=== PATIENT | male | born 1955 | race Caucasian/White ===

== ENCOUNTER 2016-12-02 06:17 | Day surgery (SDC) | payer OTHER ==
[2016-12-01 12:14] VITALS: BMI 21.8
[2016-12-02] VITALS (19 sets, daily range): BP systolic 96–119; BP diastolic 55–77; PULSE 57–103; RESP 10–20; Ht 170.2 cm; Wt 65.4 kg
[~2016-12-02] VITALS: Ht 170.2 cm; Wt 65.4 kg
[~2016-12-02 06:17] MED LIST: CEFAZOLIN 1 GM/50 ML (PMX) 50 ML IVPB ONE
[2016-12-02] MEDS ORDERED: GLYCOPYRROLATE 0.4 MG INJ ONE ×2 (06:47→07:49)
[2016-12-02] MEDS ORDERED: LIDOCAINE 2% (SDV) 5 ML INJ ONE (06:47)
[2016-12-02] MEDS ORDERED: MIDAZOLAM 1 MG/ML 2 ML INJ ONE (06:47)
[2016-12-02] MEDS ORDERED: NEOSTIGMINE 3 MG/3 ML SYRINGE ONE (06:47)
[2016-12-02] MEDS ORDERED: PROPOFOL 20 ML ONE (06:47)
[2016-12-02] MEDS ORDERED: ROCURONIUM 50 MG INJ ONE (06:47)
[2016-12-02] MEDS ORDERED: DEXAMETHASONE 4 MG/ML 1 ML INJ ONE (06:47)
[2016-12-02] MEDS ORDERED: FENTAnyl 50 MCG/ML VIAL ONE (06:47)
[2016-12-02] MEDS ORDERED: SUGAMMADEX SODIUM 200 MG/2 ML VIAL IV ONE (06:48)
[2016-12-02] MEDS ORDERED: ONDANSETRON 4 MG INJ ONE (06:48)
[2016-12-02] MEDS ORDERED: CEFAZOLIN 1 GM INJ ONE (06:58)
[2016-12-02] MEDS ORDERED: ONDANSETRON 4 MG INJ IV PRN ×2 (07:00→16:30)
[2016-12-02] MEDS ORDERED: EPHEDrine SULFATE 50 MG/5 ML SYG IV PRN (07:00)
[2016-12-02] MEDS ORDERED: hydrALAzine 20 MG INJ IV PRN (07:00)
[2016-12-02] MEDS ORDERED: DIPHENHYDRAMINE 50 MG INJ IV PRN (07:00)
[2016-12-02] MEDS ORDERED: OXYCODONE/ACETAMINOPHEN (5/325) TAB PO PRN ×2 (07:00)
[2016-12-02] MEDS ORDERED: MIDAZOLAM 1 MG/ML 2 ML INJ IV PRN (07:00)
[2016-12-02] MEDS ORDERED: MEPERIDINE 25 MG INJ IV PRN (07:00)
[2016-12-02] MEDS ORDERED: LABETALOL HCL 20MG INJ IV PRN (07:00)
[2016-12-02] MEDS ORDERED: hydrALAzine 20 MG INJ ONE (07:00)
[2016-12-02] MEDS ORDERED: FENTAnyl 50 MCG/ML VIAL IV PRN ×2 (07:00)
[2016-12-02] MEDS ORDERED: morphine (1 MG/ML) 10ML SYRINGE IV PRN ×3 (07:00)
[2016-12-02] MEDS ORDERED: HYDROmorphONE (0.2 MG/ML) 10ML SYG IV PRN ×3 (07:00)
[2016-12-02] MEDS ORDERED: ATROPINE 1 MG/10 ML SYRINGE IV PRN (07:00)
[2016-12-02 07:10] LABS: BASOPHILS % 0.5 % (0.0-2.0); EOSINOPHILS # 0.1 10^3/ul (0.0-0.5); EOSINOPHILS % 0.9 % (0.0-7.0); HEMATOCRIT 46.3 % (42.0-52.0); HEMOGLOBIN 15.9 g/dl (14.0-18.0); LYMPHOCYTES # 1.9 10^3/ul (0.8-2.9); MEAN CORPUSCULAR HEMOGLOBIN 30.3 pg (29.0-33.0); MEAN CORPUSCULAR HGB CONC 34.3 g/dl (32.0-37.0); MEAN CORPUSCULAR VOLUME 88.4 fl (82.0-101.0); MEAN PLATELET VOLUME 10.7 fl (7.4-10.4); MONOCYTE # 0.4 10^3/ul (0.3-0.9); MONOCYTES % 7.6 % (0.0-11.0); NEUTROPHILS % 56.6 % (39.0-77.0); PLATELET COUNT 161 10^3/UL (140-415); RED BLOOD COUNT 5.24 10^6/ul (4.70-6.10); RED CELL DISTRIBUTION WIDTH 13.6 % (11.5-14.5); WHITE BLOOD COUNT 5.7 10^3/ul (4.8-10.8)
[2016-12-02] MEDS ORDERED: TAMS-14 PO (07:23)
[2016-12-02] MEDS ORDERED: DUTA0.5C PO (07:23)
[2016-12-02 07:30] LABS: INR 1.06; PROTIME 13.8 Sec (12.2-14.2); PT RATIO 1.1
[2016-12-02 07:31] LABS: PARTIAL THROMBOPLASTIN TIME 29.6 Sec (25.0-35.0)
[2016-12-02 07:32] LABS: ADD UMIC NO; UR ASCORBIC ACID NEGATIVE (NEGATIVE); UR BILIRUBIN (Dip) NEGATIVE (NEGATIVE); UR BLOOD (Dip) NEGATIVE (NEGATIVE); UR CLARITY CLEAR (CLEAR); UR COLOR YELLOW (YELLOW); UR GLUCOSE (Dip) NEGATIVE (NEGATIVE); UR KETONES (Dip) NEGATIVE (NEGATIVE); UR LEUKOCYTE ESTERASE (Dip) NEGATIVE Leu/ul (NEGATIVE); UR NITRITE (Dip) NEGATIVE (NEGATIVE); UR SPECIFIC GRAVITY (Dip) 1.027 (1.003-1.030); UR TOTAL PROTEIN (Dip) NEGATIVE (NEGATIVE); UR UROBILINOGEN (Dip) NEGATIVE (NEGATIVE)
[2016-12-02 07:39] LABS: ALBUMIN 4.5 g/dl (3.3-4.9); ALBUMIN/GLOBULIN RATIO 1.36; BILIRUBIN,INDIRECT 0.5 mg/dl (0-1.1); BILIRUBIN,TOTAL 0.5 mg/dl (0.2-1.3); TOTAL PROTEIN 7.8 g/dl (6.1-8.1)
[2016-12-02 07:40] LABS: CALCIUM 9.1 mg/dl (8.4-10.2); CREATININE 0.94 mg/dl (0.61-1.24); POTASSIUM 4.2 mmol/L (3.5-5.1)
[2016-12-02] MEDS ORDERED: LABETALOL HCL 20MG INJ ONE (08:16)
--- NOTE | 2016-12-02 09:12 | HP ---
DATE OF ADMISSION: 12/02/2016 CHIEF COMPLAINT: Slow urinary stream. HISTORY OF PRESENT ILLNESS: This patient has a history of benign prostatic hyperplasia, currently taking Flomax and Avodart in the past. He apparently had gotten some chest pain with Flomax. The patient has had intermittent symptoms of slow stream, sensation of incomplete bladder emptying, urgency, frequency and straining. The symptoms are very bothersome to the patient. He has also had previous history of incomplete bladder emptying. The patient reports he does not know if the medications have really helped him a lot. He currently continues to take Avodart and Flomax. He would like to get to a point where he does not need to take medications for his urinary symptoms. The patient has undergone a cystoscopy, which had revealed bilateral occlusive lateral lobes. A transrectal ultrasound revealed a 20 g prostate. His rectal exam today also revealed a relatively small prostate. However, patient continues to have lower urinary tract symptoms. PAST MEDICAL HISTORY: None. PAST SURGICAL HISTORY: None. ALLERGIES: NO KNOWN DRUG ALLERGIES. SOCIAL HISTORY: Patient does not smoke. Does not drink alcohol. MEDICATIONS: Tamsulosin and Avodart. Patient's last aspirin was 6 days ago. REVIEW OF SYSTEMS: CONSTITUTIONAL: No fevers, no chills. No change in appetite, weight gain or weight loss. HEENT: No loss of hearing. No ear, sinus pain. No rhinorrhea, nosebleed or sore throat. CARDIOVASCULAR: No chest pain. No shortness of breath or palpitations. LUNGS: No cough, no phlegm production, visible hemoptysis. GASTROINTESTINAL: No cramping. No nausea. No diarrhea and no hematemesis. MUSCULOSKELETAL: No bone pain. No change strength or joint pain. INTEGUMENTARY: No skin rash or lesions. NEUROLOGIC: No dizziness. No headaches. No numbness. PSYCHIATRIC: No suicidal ideation. No depression. HEMATOLOGIC/LYMPHATIC: No known bleeding problems. No easy bruising. No lymph node enlargement. PHYSICAL EXAMINATION: CONSTITUTIONAL: The patient appears to be in no acute distress. ABDOMEN: Soft, normal bowel sounds. Nondistended and nontender. Liver and spleen normal. GENITOURINARY: Scrotum: No lesions, no edema. No tumor, mass/cyst. Epididymis symmetric. Normal size, normal texture, nontender. Urethral meatus normal in size. Testes descended bilaterally. Prostate exam in my office had revealed about a 40 g prostate. At that point, he had induration and tenderness. however today on rectal examination, he has about a 20 g prostate with no tenderness or induration. NECK: Normal in appearance, symmetric. Normal trachea ASSESSMENT: 1. Benign prostatic hypertrophy. 2. Lower urinary tract symptoms including slow urinary stream, intermittency, postvoid dribbling, sensation of incomplete bladder emptying, having to strain to void. 3. Previous history of prostatitis, resolved. RECOMMENDATIONS: I have spoken with patient in detail about the natural history, biology of BPH and lower urinary tract symptoms. We have discussed various treatment options. Among these options, he understands his choices include, but are not limited to, continued medications, TURP, laser TURP, microwave therapy, Rezume, UroLift and prostatectomy. Among these various treatment options, I have recommended and the patient has elected to undergo a transprostatic urethral lift procedure known as UroLift. This procedure has been explained to the patient in detail. The risks and benefits have been discussed. He understands that risks include, but are not limited to, infection, bleeding, damage to adjacent structures, heart problems, lung problems, possibility of need for further surgery, DVT, PE, ME, CVA, nonresolution of symptoms, recurrent symptoms, need for further treatment, need for further surgeries, urethral injury, bladder injury, urinary retention, dysuria, nonresolution of symptoms, worsening of his symptoms, retrograde ejaculation. All of his questions have been answered. No guarantees given. He would like to proceed. Dictated By: Ashish Renae MD /[email or web address]/[email or web address] /Document#: [id number] MARCOS
--- NOTE | 2016-12-02 09:22 | PDOCDIS ---
Discharge Instructions CONDITION Patient Condition: Good HOME CARE INSTRUCTIONS: Diet Instructions: Regular ACTIVITY: Activity Restrictions: Slowly Increase Activity Bathing Restrictions: Shower FOLLOW UP/APPOINTMENTS Follow-up Plan Monday12/05/16 for catheter removal OTHER ORDERS: Other Orders: Keep ordonez catheter to gravity SCHOOL/WORK RELEASE May return to School/Work on: Dec 08, 2016 May return to School/Work with: No Restrictions MANDY JUDGE Dec 02, 2016 09:22
--- NOTE | 2016-12-02 09:25 | OPR ---
Date/Time of Note Date/Time of Note DATE: 12/02/16 TIME: 09:23 Operative Report Preoperative Diagnosis BPH Postoperative Diagnosis same Operation/Procedure Performed transprostatic urethral lift procedure Surgeon: MANDY JUDGE Anesthesia Type: general Estimated Blood Loss: 0 - 10 ml's Transfusion Required: no Specimen: none Grafts/Implants UROLIFT implants Complications: no MANDY JUDGE Dec 02, 2016 09:25
[2016-12-02] MEDS ORDERED: CIPR500S2 PO (09:31)
[2016-12-02] MEDS ORDERED: PHEN-538 PO (09:31)
[2016-12-02] MEDS ORDERED: HYDR-906 PO (09:31)
[2016-12-02] MEDS ORDERED: IBUP-1542 PO (09:31)
[2016-12-02] MEDS: LACTATED RINGER'S 1,000 ML IV SCH ×2 (09:48→19:52)
--- NOTE | 2016-12-02 09:56 | DS ---
DATE OF ADMISSION: 12/02/2016 DATE OF DISCHARGE: ADMITTING DIAGNOSIS: Benign prostatic hypertrophy. DISCHARGE DIAGNOSIS: Benign prostatic hypertrophy. HOSPITAL COURSE: Patient was admitted and underwent trans prostatic urethral lift procedure known as UroLift. He tolerated the procedure well. He was then transferred to the recovery room. Once the patient was stable, tolerating his diet, remaining afebrile and pain was well controlled, he was discharged home. DISCHARGE INSTRUCTIONS: Activity as tolerated. No heavy lifting. Patient may shower. Follow up with me in 3 days for catheter removal. DISCHARGE MEDICATIONS: 1. Moore. 2. Pyridium. 3. Ibuprofen. 4. Cipro. 5. The patient was also instructed not to take his aspirin for at least 2 weeks. Dictated By: Ashish Renae MD /laverne/ /Document#: [id number]
--- NOTE | 2016-12-02 10:02 | OPR ---
DATE OF OPERATION: 12/02/2016 PREOPERATIVE DIAGNOSIS: Benign prostatic hypertrophy. POSTOPERATIVE DIAGNOSIS: Benign prostatic hypertrophy. OPERATIVE PROCEDURE: Transprostatic urethral lift procedure (UroLift). INDICATIONS FOR PROCEDURE: The patient has a history of bladder outlet obstructive symptoms. He has a slow stream, sensation of incomplete bladder emptying, straining, intermittency. He has been on oral medications which have not helped him. He is schedule to undergo the above said procedure. Procedure has been explained to the patient in detail. Risks have been discuss. No guarantees were given. All his questions have been answered. The patient would like to proceed. FINDINGS: Three UroLift implants were placed for the patient. The patient did not have a median lobe obstruction. The prostatic urethra became open upon placement of the implants. PROCEDURE IN DETAIL: The patient was brought to the operating room, underwent general endotracheal anesthesia. He was placed in lithotomy position. Abdomen, perineum and genitalia were prepped and draped in usual sterile fashion. A 20-Danish specialized cystoscope was placed transurethrally. Urethra was examined and appeared to be normal. The prostate contained bilateral lateral lobe obstruction. There was no median lobe obstruction. There was no bladder neck elevation. Bladder was entered. Ureteral orifices were orthotopic. No bladder tumors were seen. 1+ to 2+ bladder trabeculation was also identified. The cartridge was then attached to a cystoscope. The cartridge was then turned 90 degrees and brought into the prostatic urethra. The scope was then placed at about the 2 o'clock position just at the level of the verumontanum. The UroLift implant was then deployed. The implant was then further advanced. However, it appeared that the implant had not properly exited the cartridge. Therefore, the cartridge was discontinued once the cystoscope had been placed back into the bladder. At this point, a secondary cartridge was placed. The cartridge was brought back into the 2 o'clock position at the level of the verumontanum. The implant was then deployed. This time it deployed properly. Next, the cystoscope was advanced until the white portion of the thread was identified. This effectively placed the implant and compressed the left side of the prostate at the level of the verumontanum. Another cartridge was then placed. Similar procedure was then performed at the 10 o'clock position at the level of the verumontanum. Excellent compression was obtained. The prostatic fossa was overall not very long. One more implant was placed on the left side. This was stacked above the previous deployment at the 1 o'clock position for further compression of the prostatic tissue. This effectively opened the prostatic urethra. The implants were away from the bladder neck. Bladder was then carefully examined. No foreign bodies were seen. Ureteral orifices were orthotopic, intact, and well away from treatment. The bladder was emptied. The instrument was then discontinued. An 18-Danish urethral catheter was then placed. Catheter was placed down to gravity. Catheter was hand irrigated. Irrigation was initially light red and then became light pink and finally clear. The patient was then placed back in the supine position. He was awakened, extubated, and taken to recovery room. Postoperative condition is stable. COMPLICATIONS: None. ESTIMATED BLOOD LOSS: Minimal. BLOOD ADMINISTERED: None. SPECIMENS SENT TO LAB: None. Dictated By: Ashish Renae MD /laverne/[email or web address] /Document#: [id number]
[2016-12-02] MEDS: DEXTROSE 5%-0.45% NACL 1,000 ML IV SCH (16:05)
[2016-12-02] MEDS ORDERED: HYDROCODONE/APAP (5/325) TAB PO PRN (16:30)
[2016-12-02] MEDS ORDERED: SUMATRIPTAN 25 MG TAB PO PRN (16:30)
[2016-12-02] MEDS: CIPROFLOXACIN 500 MG TAB PO SCH (18:32)
[2016-12-02] MEDS: D5W-0.45 NACL + KCL 10 MEQ 1,000 ML IV SCH (19:33)
[2016-12-03 02:25] VITALS: BP 104/62; RESP 18
[2016-12-03] MEDS: D5W-0.45 NACL + KCL 10 MEQ 1,000 ML IV SCH (05:50)
[2016-12-03] MEDS: CIPROFLOXACIN 500 MG TAB PO SCH (06:28)
[2016-12-03 08:19] VITALS: BP 100/55; RESP 15
--- NOTE | 2016-12-03 09:29 | DS ---
Date/Time of Note Date/Time of Note DATE: 12/03/16 TIME: 09:27 Discharge Summary Admission/Discharge Info Admit Date/Time Dec 02, 2016 at 17:58 Discharge Date/Time 12/03/16 Discharge Diagnosis BPH Hematuria Post op urinary retention Nausea Patient Condition: Good Hospital Course Pt was placed in outpt services post op overnight. ONce pt was stable, tolerating PO and pain was controlled, he was dc'd home. He developed urinary retention overnight and required placement of ordonez cath. He will go home with ordonez cath Home Meds Reported Medications Dutasteride* (Avodart*) 0.5 Mg Capsule, 0.5 MG PO DAILY, CAP 12/02/16 Tamsulosin Hcl* (Flomax*) 0.4 Mg Cap.er.24h, 0.4 MG PO DAILY, CAP 12/02/16 Primary Care Provider Doris Alcantar Time spent on discharge: > 30 minutes MANDY JUDGE Dec 03, 2016 09:29
[2016-12-03] MEDS: LACTATED RINGER'S 1,000 ML IV SCH (09:39)
[2016-12-03] MEDS: DEXTROSE 5%-0.45% NACL 1,000 ML IV SCH (12:05)
== END 2016-12-03 12:40 | disposition home or self-care (01) ==
LOC: SDS 06:17 → MS1 17:58
PROVIDERS: ADMIT Surgery Surgical Oncology; ATTEND Surgery Surgical Oncology
DX: N40.1 Benign prostatic hyperplasia with lower urinary tract symptoms (principal); R35.0 Frequency of micturition; R39.14 Feeling of incomplete bladder emptying; R39.16 Straining to void; R39.15 Urgency of urination; R39.12 Poor urinary stream
CPT/HCPCS: 52441; 52442; 80053; 81003; 85025; 85610; 85730; J0360; J0690; J1100; J1170; J2175; J2250; J2405; J3010; J3480; L8699; Z7500; Z7512; Z7610; G0378; J2710; J7042; J7120